=== PATIENT | female | born 1960 | race Caucasian/White ===

== ENCOUNTER → 2022-02-24 | Day surgery (SDC) | payer BC | END | disposition home or self-care (01) | LOC: CSHULT 12:53 | PROVIDERS: ATTEND Obstetrics & Gynecology | PROC: 0H9T3ZX Drainage of Right Breast, Percutaneous Approach, Diagnostic (ICD-10-PCS; principal; 2022-02-24) | DX: C50.811 Malignant neoplasm of overlapping sites of right female breast (principal); Z17.1 Estrogen receptor negative status [ER-]; Z88.0 Allergy status to penicillin; Z88.2 Allergy status to sulfonamides | CPT/HCPCS: 19083; 76098; 88305; 88341; 88342 ==

== ENCOUNTER 2022-05-21 08:39 | Outpatient (CLI) | payer BC | END 2022-05-21 08:40 | disposition home or self-care (01) | LOC: CSHWCC 08:39 | PROVIDERS: ATTEND Nurse Practitioner Family | DX: T81.89XD Other complications of procedures, not elsewhere classified, subsequent encounter (principal) | CPT/HCPCS: 99203; G0463 ==

== ENCOUNTER 2022-06-04 09:53 | Outpatient (CLI) | payer BC | END 2022-06-04 09:54 | disposition home or self-care (01) | LOC: CSHWCC 09:53 | PROVIDERS: ATTEND Nurse Practitioner Family | DX: T81.89XD Other complications of procedures, not elsewhere classified, subsequent encounter (principal) | CPT/HCPCS: 99213; G0463 ==

== ENCOUNTER 2023-10-19 15:45 | Outpatient (CLI) | payer BC | END 2023-10-19 15:46 | disposition home or self-care (01) | LOC: CSHCT 15:45 | PROVIDERS: ATTEND Psychiatry & Neurology Neurology | DX: M48.061 Spinal stenosis, lumbar region without neurogenic claudication (principal); Z98.890 Other specified postprocedural states; M47.816 Spondylosis without myelopathy or radiculopathy, lumbar region | CPT/HCPCS: 72131 ==

== ENCOUNTER 2023-11-25 15:08 | Outpatient (CLI) | payer BC | END 2023-11-25 15:09 | disposition home or self-care (01) | LOC: CSHMRI 15:08 | PROVIDERS: ATTEND Psychiatry & Neurology Neurology | DX: M48.061 Spinal stenosis, lumbar region without neurogenic claudication (principal); M51.36 Other intervertebral disc degeneration, lumbar region | CPT/HCPCS: 72148 ==

== ENCOUNTER 2024-04-20 13:16 | Outpatient (CLI) | payer BC | END 2024-04-20 13:17 | disposition home or self-care (01) | LOC: CSHMRI 13:16 | PROVIDERS: ATTEND Neurological Surgery | DX: R26.81 Unsteadiness on feet (principal); M47.814 Spondylosis without myelopathy or radiculopathy, thoracic region; M53.82 Other specified dorsopathies, cervical region; M48.02 Spinal stenosis, cervical region; M48.03 Spinal stenosis, cervicothoracic region | CPT/HCPCS: 72141; 72146 ==

== ENCOUNTER 2024-09-12 15:29 | Outpatient (CLI) | payer BC | END 2024-09-12 15:30 | disposition home or self-care (01) | LOC: CSHCT 15:29 | PROVIDERS: ATTEND Neurological Surgery | DX: M54.50 Low back pain, unspecified (principal); T84.296A Other mechanical complication of internal fixation device of vertebrae, initial encounter; Z98.1 Arthrodesis status; M43.07 Spondylolysis, lumbosacral region | CPT/HCPCS: 72131 ==